=== PATIENT | male | born 1955 | race Caucasian/White ===

== ENCOUNTER → 2017-08-04 | Outpatient (CLI) | payer BC ==
[~2017-08-04] MED LIST: APAP500 PO; ARIXTRA; ASPIRIN325; CALCIUM 500 +1 EAC5 PO; CIPRO500 MG PO; FLOMAX0.4 MG PO; HYDROCODONE-AP1 EA10 PO; HYOSCYAMINE0.375 MG PO; IBUPROFEN 600600 M1 PO; LEVOTHYROXIN0.125 M1 PO; LEVOXYL; LISINOPRIL20 MG PO; NORCO 5-325 TA1 EACH PO; OXYCONTIN10 M1; OXYIR5 MG; VITAMIN B-1100 M1; ZESTRIL PO; ZESTRIL40 MG PO
[2017-08-04 14:46] LABS: CALCIUM 8.7 mg/dL (8.5-10.1); POTASSIUM 4.3 mmol/L (3.5-5.1)
== END ==
LOC: M.LAB 06:26
PROVIDERS: Radiology Radiation Oncology
DX: E03.9 Hypothyroidism, unspecified (principal); Z85.21 Personal history of malignant neoplasm of larynx

== ENCOUNTER → 2017-08-10 | Outpatient (CLI) | payer BC ==
--- NOTE | 2017-08-23 23:50 | ONC ---
[place] [address] RADIATION ONCOLOGY NOTE Name: JASON,OVIDIO Anil Room: [facility]#: [id number] Admission: 08/10/17 Attend Phys: Ryley Willoughby MD Discharge: Date of : 57 Report #: [id number] THIS REPORT FOR: //name// CC: Naeem Chahal MD DATE OF PROCEDURE: 08/10/2017 REFERRING PHYSICIANS: German Chahal MD; Kenn Jorge MD; Naeem Knight MD. The patient no longer sees Naeem Miller DO; he sees Dr. Knight. [facility] phone is [phone]. 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 Radiation treatments were completed on 02/03/2014. PROCEDURE: Nasopharyngolaryngoscopy. FINDINGS: On nasopharyngolaryngoscopy via the left nostril after administration of a small amount of 2% viscous lidocaine orally and 2% viscous lidocaine to the left nostril via a cotton swab; there were no visible lesions in the nasopharynx. There were no visible lesions in the posterior oropharynx. True vocal cords were normally mobile bilaterally without any visible lesions. There was no evidence of laryngeal cancer. Thank you for allowing me to participate in the care of this patient. <ELECTRONICALLY SIGNED> By: Ryley Willoughby MD 08/23/17 2350 [id number] Willoughby MD /nt
--- NOTE | 2017-08-23 23:58 | ONC ---
[place] [address] RADIATION ONCOLOGY NOTE Name: OVIDIO GOMEZ Room: [facility]#: [id number] Admission: 08/10/17 Attend Phys: Ryley Willoughby MD Discharge: Date of : 57 Report #: [id number] THIS REPORT FOR: //name// CC: Dr. Eugene Chahal MD DATE OF SERVICE: 08/10/2017 REFERRING PHYSICIANS: 1. Dr. Knight. 2. German Chahal MD. 3. Kenn Jorge MD. [facility] phone is [phone]. PRIMARY SITE AND HISTOPATHOLOGY: The patient received definitive radiation therapy for a T2N0M0 squamous cell carcinoma that involved the right true vocal cord. The radiation treatments were completed on 02/03/2014. INTERVAL NOTE: The patient has a good voice quality. He has a good appetite and he has a good energy level. He says he has been pretty busy at work. He works at [employer]. MEDICATIONS: Levothyroxine 137 mcg per day as well as lisinopril. 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 Cigarettes: he continues to smoke about a half pack of cigarettes per day. He started smoking around 1970. He used to drink ethanol in the past, and he used to drink several beers a night. REVIEW OF SYSTEMS: RESPIRATORY: Breathing was baseline. He was not short of breath during his appointment. GASTROINTESTINAL: He has a good appetite. He is swallowing well. PHYSICAL EXAMINATION: VITAL SIGNS: The patient weighed 169.4 pounds on 08/10/2017, he was 166.8 pounds on 11/17/2016. On 08/10/2017, blood pressure was 142/58, pulse 68, respirations 18. LYMPH NODES: He had no palpable cervical or supraclavicular lymphadenopathy. HEAD, EYES, EARS, NOSE, AND THROAT EXAMINATION: On nasopharyngolaryngoscopy via the left nostril after administration of a small amount of 2% viscous lidocaine orally and 2% viscous lidocaine to the left nostril, [place] [address] RADIATION ONCOLOGY NOTE Name: JASON,OVIDIO Anil Room: [facility]#: [id number] Admission: 08/10/17 Attend Phys: Ryley Willoughby MD Discharge: Date of : 57 Report #: [id number] lesions in the nasopharynx and no visible lesions in the posterior oropharynx. The true vocal cords were normally mobile bilaterally without any visible lesions. HEART: Had a regular rate and rhythm without murmur. LUNGS: were clear to auscultation. LABORATORY DATA: From 08/04/2017, sodium was 129, potassium 4.3, BUN was 8, creatinine 1.0. TSH was 0.643 on his present dose of 137 mcg of levothyroxine per day. ASSESSMENT AND PLAN: 1. History of laryngeal cancer- There is no evidence of laryngeal cancer at this time. A requisition was written for a basic metabolic panel to be done in about 8 months and the patient was asked to schedule a followup appointment to see me afterwards. 2. Hypothyroidism- The patient was given a refill for 137 mcg of levothyroxine. He was given a requisition for TSH in about 8 months. He was asked to schedule a follow up appointment to see me afterwards. 3. Hypertension-The patient takes lisinopril and that is managed by his referring physicians. 4. Cigarette smoking- The patient was urged to quit smoking. In the past, he had been offered screening low dose chest CTs without contrast though he has declined them in the past. Thank you for allowing me to participate in the care of this patient. <ELECTRONICALLY SIGNED> By: Ryley Willoughby MD 08/23/17 2358 [id number] Willoughby MD /nt
== END ==
LOC: M.RTH 07-31 09:30
DX: Z08 Encounter for follow-up examination after completed treatment for malignant neoplasm (principal); E03.9 Hypothyroidism, unspecified; I10 Essential (primary) hypertension; F17.200 Nicotine dependence, unspecified, uncomplicated; Z72.89 Other problems related to lifestyle; Z85.21 Personal history of malignant neoplasm of larynx

== ENCOUNTER → 2018-09-10 | Outpatient (CLI) | payer BC ==
[2018-09-10 16:47] LABS: POTASSIUM 4.1 mmol/L (3.5-5.1)
== END ==
LOC: M.LAB 16:24
PROVIDERS: Radiology Radiation Oncology
DX: E03.9 Hypothyroidism, unspecified (principal); Z87.898 Personal history of other specified conditions

== ENCOUNTER → 2018-09-17 | Outpatient (CLI) | payer BC ==
--- NOTE | ~2018-09-17 | ONC ---
[address] [address] RADIATION ONCOLOGY NOTE Name: OVIDIO GOMEZ Room: [facility]#: [id number] Admission: 09/17/18 Attend Phys: Ryley Willoughby MD Discharge: Date of : 57 Report #: [id number] THIS REPORT FOR: //name// CC: Naeem Jorge MD DATE OF SERVICE: 09/17/2018 RADIATION ONCOLOGY FOLLOWUP NOTE [facility] phone is [phone]. REFERRING PHYSICIANS: 1. Dr. Miller. 2. Dr. Kenn Jorge. 3. Dr. German Chahal. PRIMARY SITE AND HISTOPATHOLOGY: The patient received definitive radiation therapy for a T2 N0 M0 squamous cell carcinoma that involved the right true vocal cord. The radiation treatments were completed on 02/03/2014. INTERVAL NOTE: The patient has a good voice quality. He has a good appetite and he continues to work for [employer]. MEDICATIONS: Levothyroxine 137 mcg per day as well as lisinopril. 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 Cigarettes, he continues to smoke about a half pack of cigarettes per day; he started smoking around 1970s. He used to drink ethanol in the past. He used to drink several beers at night. REVIEW OF SYSTEMS: RESPIRATORY: Breathing was baseline. He was not short of breath during his appointment. GASTROINTESTINAL: He has a good appetite. He is swallowing well. PHYSICAL EXAMINATION: VITAL SIGNS: The patient weighed 161.6 pounds on 09/17/2018 and 169.4 pounds on 08/10/2018. On 09/17/2018, blood pressure was 130/71, oxygen saturation 96%, pulse 74 and respirations 20. LYMPH NODES: He had no palpable cervical or supraclavicular lymphadenopathy. HEAD, EYES, EARS, NOSE AND THROAT EXAMINATION: On nasopharyngolaryngoscopy via left nostril, after administration of a small amount of 2% [place] [address] RADIATION ONCOLOGY NOTE Name: OVIDIO GOMEZ Room: [facility]#: [id number] Admission: 09/17/18 Attend Phys: Ryley Willoughby MD Discharge: Date of : 57 Report #: [id number] orally, 2% viscous lidocaine to the left nostril, there were no visible lesions in the nasopharynx. No visible lesions in the posterior oropharynx. True vocal cords were normally mobile bilaterally, without any visible lesions. HEART: Had a regular rate and rhythm, without murmur. LUNGS: Clear to auscultation. LABORATORY DATA: From 09/10/2018, TSH was 0.326 on his present dose of 137 mcg of levothyroxine per day. Sodium was 136, potassium 4.1, BUN 12 and creatinine 1.0. Normal value for TSH was 0.358 to 3.74. ASSESSMENT AND PLAN: 1. History of laryngeal cancer. There was no evidence of laryngeal cancer. The patient was asked to schedule a followup appointment with me around 03/2019 or 04/2019. 2. Hypothyroidism. The patient's levothyroxine was reduced from 137 mcg to 125 mcg per day. TSH was ordered around 03/2019 or 04/2019. The patient was asked to follow up with me afterwards. 3. Hypertension. The patient takes lisinopril and that is managed by his referring physicians. 4. Cigarette smoking. The patient was urged to quit smoking. He has declined low-dose chest screening CTs. Thank you for allowing me to participate in the care of this patient. By: [id number] Willoughby MD /nt
--- NOTE | ~2018-09-17 | ONC ---
[place] [address] RADIATION ONCOLOGY NOTE Name: OVIDIO GOMEZ Room: [facility]#: [id number] Admission: 09/17/18 Attend Phys: Ryley Willoughby MD Discharge: Date of : 57 Report #: [id number] THIS REPORT FOR: //name// CC: Naeem Willoughby DATE OF SERVICE: 09/17/2018 REFERRING PHYSICIANS: Duane Chahal MD; Kenn Jorge MD; and Dr. Miller. [facility] phone is [phone]. PRIMARY SITE AND HISTOPATHOLOGY: The patient received definitive radiation therapy for T2 N0 M0 squamous cell carcinoma of true vocal cord. Radiation treatments were completed on 02/03/2014. PROCEDURE: Nasopharyngolaryngoscopy. FINDINGS: On nasopharyngolaryngoscopy via the left nostril after administration of a small amount of 2% viscous lidocaine orally and 2% viscous lidocaine to left nostril via cotton swab, there were no visible lesions in the nasopharynx, no visible lesions in the posterior oropharynx. True vocal cords were normally mobile bilaterally without any visible lesions. There was no evidence of laryngeal cancer. Thank you for allowing me to participate in the care of this patient. By: [id number] Willoughby MD /nt
== END | disposition home or self-care (01) ==
LOC: M.RTH 05-10 16:00
DX: Z85.21 Personal history of malignant neoplasm of larynx (principal); E03.9 Hypothyroidism, unspecified; I10 Essential (primary) hypertension; F17.210 Nicotine dependence, cigarettes, uncomplicated; Z79.899 Other long term (current) drug therapy; Z98.890 Other specified postprocedural states